=== PATIENT | female | born 1975 | race Caucasian/White ===

== ENCOUNTER → 2017-12-06 15:11 | Outpatient (CLI) | payer OTHER, SELFPAY ==
[2017-12-06 16:05] LABS: Alanine Aminotransferase 37 IU/L (9-52); Albumin 3.9 g/dL (3.5-5.0); Albumin Globulin Ratio 1.3 (1.0-2.8); Alkaline Phosphatase 81 U/L (38-126); Aspartate Aminotransferase 28 IU/L (14-36); BUN Creatinine Ratio 13.3 (6-22); Bilirubin Total 0.4 mg/dL (0.2-1.3); Blood Urea Nitrogen 8 mg/dL (7-17); Calcium 9.4 mg/dL (8.4-10.2); Carbon Dioxide 25 mmol/L (22-32); Chloride 108 mmol/L (98-107); Estimated Glomerular Filt Rate > 60.0 mL/min (>60); Glucose 113 mg/dL (70-100); HEMOLYSIS < 15 (0-50); Potassium 4.1 mmol/L (3.4-5.1); Sodium 145 mmol/L (137-145); Total Protein 6.9 g/dL (6.3-8.2)
== END ==
PROVIDERS: PCP Family Medicine; Visit Provider Family Medicine
DX: I10 Essential (primary) hypertension (principal)
CPT/HCPCS: 36415; 80053

== ENCOUNTER → 2017-12-15 13:58 | Outpatient (CLI) | payer OTHER, SELFPAY ==
--- NOTE | 2017-12-15 13:59 | DI.MG.S_ITS ---
BILATERAL DIGITAL SCREENING MAMMOGRAM 3D/2D WITH CAD: 12/15/2017 CLINICAL: Routine screening. Comparison is made to exam dated: 11/22/2013 [facility]. The tissue of both breasts is predominantly fatty. Current study was also evaluated with a Computer Aided Detection (CAD) system. No significant masses, calcifications, or other findings are seen in either breast. There has been no significant interval change. IMPRESSION: NEGATIVE There is no mammographic evidence of malignancy. A 1 year screening mammogram is recommended. This exam was interpreted at Station ID: [id number]. NOTE: For mammograms, a report in lay terms will be sent to the patient. Approximately 15% of breast malignancies will not be visualized mammographically. In the management of a palpable breast mass, a negative mammogram must not discourage biopsy of a clinically suspicious lesion. Electronically Signed By: Diana bradley/cliff:12/15/2017 17:23:16 letter sent: Normal Exam ACR BI-RADS Category 1: Negative 3341F
== END ==
PROVIDERS: PCP Family Medicine; Visit Provider Family Medicine
DX: Z12.31 Encounter for screening mammogram for malignant neoplasm of breast (principal)
CPT/HCPCS: 77063; 77067

== ENCOUNTER → 2018-12-07 12:02 | Outpatient (CLI) | payer OTHER, SELFPAY | PROVIDERS: PCP Family Medicine; Visit Provider Nurse Practitioner Family | DX: N39.0 Urinary tract infection, site not specified (principal) | CPT/HCPCS: 87077; 87086; 87186 ==

== ENCOUNTER → 2020-01-01 17:26 | Outpatient (CLI) | payer OTHER, SELFPAY ==
--- NOTE | 2020-01-01 | DI.MG.S_ITS ---
BILATERAL DIGITAL SCREENING MAMMOGRAM 3D/2D WITH CAD: 01/01/2020 CLINICAL: Routine screening. Comparison is made to exams dated: 12/15/2017 mammogram and 11/22/2013 mammogram - [facility]. The tissue of both breasts is predominantly fatty. Current study was also evaluated with a Computer Aided Detection (CAD) system. No significant masses, calcifications, or other findings are seen in either breast. There has been no significant interval change. IMPRESSION: NEGATIVE There is no mammographic evidence of malignancy. A 1 year screening mammogram is recommended. This exam was interpreted at Station ID: [id number]. NOTE: For mammograms, a report in lay terms will be sent to the patient. Approximately 15% of breast malignancies will not be visualized mammographically. In the management of a palpable breast mass, a negative mammogram must not discourage biopsy of a clinically suspicious lesion. Electronically Signed By: Donavan hernández/cliff:01/02/2020 11:47:56 letter sent: Normal Exam ACR BI-RADS Category 1: Negative 3341F
== END ==
PROVIDERS: PCP Family Medicine; Referring Provider Family Medicine; Visit Provider Family Medicine
DX: Z12.31 Encounter for screening mammogram for malignant neoplasm of breast (principal)
CPT/HCPCS: 77063; 77067

== ENCOUNTER 2023-01-04 15:24 | Emergency (ER) | payer OTHER, SELFPAY ==
[2023-01-04 15:52] VITALS: BP 124/62; PULSE 78; RESP 18; TEMP 37.1; O2SAT 100; BMI 31.6
--- NOTE | 2023-01-04 15:58 | DI.RAD.S_ITS ---
PROCEDURE: XR RIBS LT MIN 3V W CXR1V INDICATIONS: fell 12/25 still having pain TECHNIQUE: 2 views of the left ribs were acquired, along with a single view chest. COMPARISON: None. FINDINGS: Surgical changes and devices: None. Bones and chest wall: No fractures or dislocations. No suspicious bony lesions. Overlying soft tissues appear unremarkable. Lungs and pleura: Left basilar opacity. Mediastinum: Mediastinal contours appear normal. Heart size is normal. IMPRESSION: 1. No displaced rib fractures. 2. Left basilar opacity, may represent infection or effusion and atelectasis. Dictated by: Gene Morales M.D. on 01/04/2023 at 17:00 Approved by: Gene Morales M.D. on 01/04/2023 at 17:01
[2023-01-04 16:54] LABS: Bacteria Urine Occasional (0-1); Mucus Urine 1+ (Negative); RBC Urine 1-5/HPF (0-5/HPF); Squamous Epithelial Cell Urine 0-1 /HPF (0-5/HPF)
[2023-01-04 16:56] LABS: Culture Indicated Urine Specimen Cultured; WBC Urine 5-10/HPF (0-5/HPF)
[2023-01-04 17:40] VITALS: BP 128/68; PULSE 82; RESP 14; O2SAT 99
[2023-01-04 17:47] VITALS: BP 129/68; PULSE 76; RESP 16; O2SAT 100
--- NOTE | 2023-01-04 17:53 | PC.NURSE ---
pt states she fell over a week ago carrying groceries up stairs when her cats ran through her legs. fell onto L ribs. having pain, some SOB, and persistant cough when breathing deep. Lungs clear. XR obtained. incentive spirometer teaching performed and pt with return demonstration. NAD.
--- NOTE | 2023-01-04 18:16 | ED.BACK ---
HPI - Back Pain/Injury <Sherri Zuleta PA-C - Last Filed: 01/04/23 18:36> General Chief Complaint: Back Pain/Injury Stated Complaint: fall on , sx's started 4 days ago Time Seen by Provider: 01/04/23 18:00 History of Present Illness HPI Narrative: Patient is a 47-year-old female who is here with complaint of left lateral rib pain. She fell onto the wooden stairs while carrying groceries and walking upstairs on 12/25. She initially had some bruising over her face and forehead but no pain over her ribs. Then four days ago she rolled over in bed and had intense left rib pain. The pain has been significant despite taking 800 mg of ibuprofen every 4-5 hours. She reports low appetite and sometimes feeling nauseous because of the pain, has been eating crackers and soup for several days. She denies fever or chills, has a rare cough, no urinary symptoms. Related Data Home Medications Medication Instructions Recorded Confirmed copper 380 square mm intrauterine intrauterine 10/11/17 12/07/18 device (ParaGard T 380A) Previous Rx's Medication Instructions Recorded boric acid 600 mg vaginal .COMPLEX PRN BV #12 09/18/17 supp fluconazole 150 mg tablet 150 mg PO DAILY 1 dose #1 tab 12/07/18 (Diflucan) nitrofurantoin 100 mg PO BID #10 caps 12/07/18 monohydrate/macrocrystals 100 mg capsule phenazopyridine 100 mg tablet 100 mg PO TID PRN pain 6 doses #6 12/07/18 (Pyridium) tabs lisinopril 5 mg tablet 5 mg PO DAILY #30 tabs 05/09/19 hydrocodone 5 mg-acetaminophen 325 1 tab PO TID PRN pain (scale score 01/04/23 mg tablet 7-10) #10 tabs Allergies Allergy/AdvReac Type Severity Reaction Status Date / Time No Known Drug Allergies Allergy Verified 01/12/18 14:42 Review of Systems <Sherri Zuleta PA-C - Last Filed: 01/04/23 18:36> Review of Systems ROS Unobtainable: All systems reviewed & are unremarkable except as noted in HPI and below Patient History <Sherri Zuleta PA-C - Last Filed: 01/04/23 18:36> Surgical History History of third molar tooth extraction (1989) Family History Mother No problems noted. Social History marital status: number of children: 2 household members: children lives independently: Yes education level: college occupational status: employed Smoking Status: Current some day smoker alcohol intake: current (occasional) substance use type: does not use Smoking Status: Current some day smoker tobacco type: cigarettes alcohol intake frequency: holidays/special occasions only Substance Use Type: does not use Exam <Sherri Zuleta PA-C - Last Filed: 01/04/23 18:36> Narrative Exam Narrative: GENERAL: 47 year old patient appears stated age. Well-developed patient, in no distress. NEURO: AOx3. HEAD: Atraumatic. Normocephalic. EYES: Pupils equal round and reactive. Extraocular motions intact. No scleral icterus. No injection or drainage. ENT: Nose without bleeding or purulent drainage. Airway patent. CARDIOVASCULAR: Regular rate and rhythm without murmurs, gallops, or rubs. RESPIRATORY: Clear to auscultation. Breath sounds equal bilaterally. No wheezes, rales, or rhonchi. SKIN: No rash over left ribs Initial Vital Signs Initial Vital Signs: Vital Signs Temperature 98.8 F 01/04/23 15:52 Pulse Rate 78 01/04/23 15:52 Respiratory Rate 18 01/04/23 15:52 Blood Pressure 124/62 01/04/23 15:52 Pulse Oximetry 100 01/04/23 15:52 Oxygen Delivery Method Room Air 01/04/23 15:52 <Jonathan Rich DO - Last Filed: 01/05/23 00:14> Initial Vital Signs Initial Vital Signs: Vital Signs Temperature 98.8 F 01/04/23 15:52 Pulse Rate 78 01/04/23 15:52 Respiratory Rate 18 01/04/23 15:52 Blood Pressure 124/62 01/04/23 15:52 Pulse Oximetry 100 01/04/23 15:52 Oxygen Delivery Method Room Air 01/04/23 15:52 Course <Sherri Zuleta PA-C - Last Filed: 01/04/23 18:36> Orders Ordered: ED Orders 01/04/23 15:58 XR ribs LT min 3V w CXR1V Stat 01/04/23 16:30 Urine Culture Stat Urine Microscopic Stat Vital Signs Vital signs: Vital Signs - 8 hr 01/04/23 17:40 01/04/23 17:47 Pulse Rate 82 76 Respiratory Rate 14 16 Blood Pressure 128/68 129/68 Pulse Oximetry 99 100 Oxygen Delivery Method Room Air Room Air <Jonathan Rich DO - Last Filed: 01/05/23 00:14> Orders Ordered: ED Orders 01/04/23 15:58 XR ribs LT min 3V w CXR1V Stat 01/04/23 16:30 Urine Culture Stat Urine Microscopic Stat Vital Signs Vital signs: Vital Signs - 8 hr 01/04/23 17:40 01/04/23 17:47 Pulse Rate 82 76 Respiratory Rate 14 16 Blood Pressure 128/68 129/68 Pulse Oximetry 99 100 Oxygen Delivery Method Room Air Room Air MDM - Back Pain/Injury <Sherri Zuleta PA-C - Last Filed: 01/04/23 18:36> Lab Data Labs: Lab Results 01/04/23 Range/Units 16:30 Urine RBC 1-5/hpf (0-5/HPF) Urine WBC 5-10/hpf H (0-5/HPF) Ur Squamous Epith Cells 0-1 /hpf (0-5/HPF) Urine Bacteria Occasional (0-1) (None) Urine Mucus 1+ H (Negative) Ur Culture Indicated? Specimen cultured Urine Dip Bedside Urine Glucose Negative Bedside Urine Bilirubin - Negative Bedside Urine Ketone +++ 80 Urine Specific [place] 1.025 Bedside Urine Occult Blood - Negative Bedside Urine pH 6.0 Bedside Urine Protein +/- 15 Bedside Urine Urobilinogen - Negative Bedside Urine Nitrite - Negative Bedside Urine Leukocytes - Negative Esterase Imaging Data Chest x-ray: Radiologist's Impression: PROCEDURE: XR RIBS LT MIN 3V W CXR1V INDICATIONS: fell 12/25 still having pain TECHNIQUE: 2 views of the left ribs were acquired, along with a single view chest. COMPARISON: None. FINDINGS: Surgical changes and devices: None. Bones and chest wall: No fractures or dislocations. No suspicious bony lesions. Overlying soft tissues appear unremarkable. Lungs and pleura: Left basilar opacity. Mediastinum: Mediastinal contours appear normal. Heart size is normal. IMPRESSION: 1. No displaced rib fractures. 2. Left basilar opacity, may represent infection or effusion and atelectasis. Dictated by: Gene Morales M.D. on 01/04/2023 at 17:00 Approved by: Gene Morales M.D. on 01/04/2023 at 17:01 [facility] Narrative Medical decision making narrative: Multiple etiologies for patient's symptoms considered including, but not limited to: Rib fractures, rib contusion, pulmonary contusion, pneumonia, atelectasis, effusion. X-ray shows 2 rib fractures (not noted on CXR interpretation) and is notable for a left lower lobe consolidation vs atelectasis. Patient denies any fever or chills, has a rare cough, saturations 100% in emergency room, making pneumonia less likely, although she is at risk. She has been in significant pain and not taking deep breaths. We discussed adequate pain control and I will prescribe her [place] for pain. UA +ketones; patient not diabetic, likely due to decreased oral intake. Patient's symptoms improved over duration of stay with above-stated therapies. Findings and discharge diagnosis discussed with patient/family followed by verbalization of understanding Return precautions discussed with patient/family whom verbalize understanding of diagnosis and plan <Jonathan Rich, - Last Filed: 01/05/23 00:14> Lab Data Labs: Lab Results 01/04/23 Range/Units 16:30 Urine RBC 1-5/hpf (0-5/HPF) Urine WBC 5-10/hpf H (0-5/HPF) Ur Squamous Epith Cells 0-1 /hpf (0-5/HPF) Urine Bacteria Occasional (0-1) (None) Urine Mucus 1+ H (Negative) Ur Culture Indicated? Specimen cultured Urine Dip Bedside Urine Glucose Negative Bedside Urine Bilirubin - Negative Bedside Urine Ketone +++ 80 Urine Specific [place] 1.025 Bedside Urine Occult Blood - Negative Bedside Urine pH 6.0 Bedside Urine Protein +/- 15 Bedside Urine Urobilinogen - Negative Bedside Urine Nitrite - Negative Bedside Urine Leukocytes - Negative Esterase Discharge Plan Departure Patient Disposition: Home Clinical Impression: Fracture, ribs Qualifiers: Encounter type: initial encounter Fracture type: closed Laterality: left Qualified Code(s): S22.42XA - Multiple fractures of ribs, left side, initial encounter for closed fracture Instructions: DI for Rib Fracture Activity Restrictions/Additional Instructions: *You have been diagnosed with two left rib fractures. As we discussed, having rib fractures puts you at risk for pneumonia. The most important thing you can do is use the incentive spirometer every hour while you are awake. You can also hold a pillow over the affected area while you do deep breaths and cough to provide some support. In order to take deep breaths, you need adequate pain control. You can take Tylenol, 1000 mg every 8 hours, plus ibuprofen 800 mg every 8 hours or 600 mg every 6 hours. I will also prescribe additional pain medication to be used for severe pain or pain when you try to sleep. Please be aware that this pain medication includes Tylenol so you need to calculate this into your total daily amount. You can also use an [id number] lidocaine patch to apply over the sore area for increased pain relief. If you develop fever or chills, or having difficulty breathing, or seem to be getting worse instead of better, please return for reassessment. *What to do: *Please continue to take your regular medications as directed. [x] New medication prescriptions sent to your pharmacy: [ ] [ ] New medication written as a paper prescription [ ] No new medications given *Please follow up with your primary care provider in 2-3 days, call for an appointment. Let them know you were seen in the Emergency Department and that we ask that you be seen in follow up. We will electronically transmit a record of today's note if your PCP is in our system *If you do not have a primary care provider please contact the [facility] Resource line at [phone]. They will ask some questions about your medical history and help get you set up with a doctor in the community. *Return to Emergency Department if you should have any new, worsening or concerning symptoms, such as [fever greater than 101 F, shaking chills, worsening pain, persistent vomiting or other concerning symptoms]. Prescriptions: New hydrocodone-acetaminophen 5-325 mg tablet 1 tab PO TID PRN (Reason: pain (scale score 7-10)) Qty: 10 0RF No Action lisinopril 5 mg tablet 5 mg PO DAILY Qty: 30 0RF Rx Instructions: MUST BE SEEN FOR REFILLS boric acid 600 mg VAG .COMPLEX PRN (Reason: BV) Qty: 12 2RF Rx Instructions: 600 mg VAG once weekly PRN; copper [ParaGard T 380A] 380 square mm intrauterine device Intrauterine nitrofurantoin monohyd/m-cryst 100 mg capsule 100 mg PO BID Qty: 10 0RF Rx Instructions: must administer with a meal/food phenazopyridine [Pyridium] 100 mg tablet 100 mg PO TID PRN (Reason: pain) Qty: 6 0RF Rx Instructions: will stain clothing fluconazole [Diflucan] 150 mg tablet 150 mg PO DAILY Qty: 1 0RF Rx Instructions: administer on day 1 of therapy for antibiotic related yeast infection Referrals: Geena Dunbar DO [Primary Care Provider] - Stand Alone Forms: Patient Portal/API ED Sign-out <Jonathan Rich DO - Last Filed: 01/05/23 00:14> Cosign ED Attending Anne Marie Attestation: I was immediately available in the department for consultation. Documentation has been reviewed. I agree with assessment and plan.
== END 2023-01-04 18:36 | disposition home or self-care (01) ==
PROVIDERS: Emergency Medicine; Emergency Provider Physician Assistant; PCP Family Medicine
DX: S22.42XA Multiple fractures of ribs, left side, initial encounter for closed fracture (principal); W10.9XXA Fall (on) (from) unspecified stairs and steps, initial encounter
CPT/HCPCS: 71101; 81003; 81015; 87077; 87086; 87186; 99282; 99283